=== PATIENT | female | born 1965 | race Caucasian/White ===

== ENCOUNTER 2019-12-22 | Emergency (ER) | payer OTHER ==
[2019-12-22] MEDS ORDERED: Etomidate 2 MG/ML 20 ML SDV IVPUSH ONE (00:26)
[2019-12-22] MEDS ORDERED: ceFAZolin 2 GM in Premix Bag 1 BAG IV ONE (01:05)
--- NOTE | 2019-12-22 01:28 | EDM.PDOC ---
ED HPI GENERAL MEDICAL PROBLEM - General Chief Complaint: Lower Extremity Injury/Pain Stated Complaint: INJURED RIGHT ANKLE Time Seen by Provider: 12/22/19 00:27 Source of Information: Reports: Patient, Family History Limitations: Reports: No Limitations - History of Present Illness INITIAL COMMENTS - FREE TEXT/NARRATIVE: This is a 54-year-old female. She was at a local club this evening when she decided to go outside because her friends are going outside to smoke. Apparently there was a sheet of ice and she slipped on the ice and fell breaking her right ankle and dislocating it. She comes to the ER for evaluation and she says she has sensation in her toes but her right foot is angulated laterally and obviously dislocated. She does have a small about 1 cm wound on the medial side of the ankle that is bleeding. [place] any other injuries and no other complaints. Right Ankle Pain Score (Numeric/FACES): 5 - Related Data Allergies Allergy/AdvReac Type Severity Reaction Status Date / Time No Known Allergies Allergy Verified 12/22/19 00:26 Past Medical History - Past Health History Medical/Surgical History: Denies Medical/Surgical History Social & Family History - Tobacco Use Smoking Status *Q: Never Smoker Second Hand Smoke Exposure: No - Caffeine Use Caffeine Use: Reports: Coffee - Recreational Drug Use Recreational Drug Use: No Review of Systems - Review of Systems Review Of Systems: See Below Constitutional: Denies: Chills, Fever Eyes: Reports: No Symptoms Ears: Reports: No Symptoms Nose: Reports: No Symptoms Mouth/Throat: Reports: No Symptoms Respiratory: Denies: Shortness of Breath, Cough Cardiovascular: Reports: No Symptoms GI/Abdominal: Reports: No Symptoms Genitourinary: Reports: No Symptoms Musculoskeletal: Reports: Other (As per HPI) Skin: Reports: Other (As per HPI) Neurological: Reports: No Symptoms Psychiatric: Reports: No Symptoms ED EXAM, GENERAL - Physical Exam Exam: See Below Exam Limited By: No Limitations General Appearance: Alert, WD/WN, Mild Distress Eye Exam: Bilateral Eye: Normal Inspection Ears: Normal External Exam Nose: Normal Inspection Throat/Mouth: Normal Lips, Normal Voice, No Airway Compromise Head: Atraumatic, Normocephalic Neck: Supple, Other (She denies any neck tenderness) Respiratory/Chest: No Respiratory Distress, Lungs Clear, Normal Breath Sounds, Other (She denies any rib tenderness on palpation) Cardiovascular: Regular Rate, Rhythm, No Murmur GI/Abdominal: Soft Back Exam: Other (She denies any thoracic or lumbar tenderness) Extremities: Other (The upper extremities and the left lower extremity are atraumatic, her right lower extremity shows an obvious angulated dislocated right ankle with the foot going laterally, she has 2+ pedal pulse, capillary refills intact in all 5 digits as well as sensation, she does have about a 1 cm laceration on the medial side of the knee that is bleeding suggesting this is an open fracture.) Neurological: Alert, Oriented Psychiatric: Flat Affect Skin Exam: Warm, Dry ED TRAUMA EXTREMITY PROCEDURES - Joint Reduction Site: Other (Right ankle) Sedation: Conscious Sedation (Etomidate 20 mg IV) Pre-Procedure NV Status: Normal Post-Procedure NV Status: Normal Technique: Traction/Counter Traction Number of Attempts: 1 Post-Reduction Imaging: Acceptably Reduced, Fracture Seen Joint Reduction Complications: No Course - Vital Signs Last Recorded V/S: Last Vital Signs Temp 97.2 F 12/22/19 00:21 Pulse 71 12/22/19 00:21 Resp 18 12/22/19 00:21 BP 122/85 12/22/19 00:21 Pulse Ox 96 12/22/19 00:21 - Orders/Labs/Meds Orders: Active Orders 24 hr Category Date Time Status Ankle 2V Rt [CR] Routine Exams 12/22/19 01:13 Taken Ankle 2V Rt [CR] Stat Exams 12/22/19 00:27 Taken Meds: Medications Discontinued Medications Generic Name Dose Route Start Last Admin Trade Name Freq PRN Reason Stop Dose Admin Etomidate 20 mg 12/22/19 00:26 12/22/19 00:50 Amidate IVPUSH 12/22/19 00:27 20 mg ONETIME ONE Administration Cefazolin Sodium/Dextrose 2 gm 50 mls @ 100 mls/hr 12/22/19 01:05 12/22/19 01 :18 / Premix IV 12/22/19 01:34 100 mls/hr ONETIME ONE Administration - Radiology Interpretation Free Text/Narrative:: Initial x-ray shows a dislocated right ankle laterally with a bimalleolar fracture. Reduction films show an acceptable basement of the ankle bones at this time. - Re-Assessments/Exams Free Text/Narrative Re-Assessment/Exam: 12/22/19 01:11 Spoke to the patient as well as the family prior to the reduction of the joint and using etomidate 20 mg IV. The was in the room during the conscious sedation and the reduction of her right ankle. After the ankle was reduced a posterior splint and a sugar tong splint were placed and reduction x-rays were done. 12/22/19 01:[address] 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 I spoke to Dr. Sands in the ER at [facility] and she accepts the patient in transport for further evaluation and treatment. The family are going to be taking the patient in their private vehicle to [facility] ER directly from our ER. She is to not eat anything or drink anything on the way to [facility] since they plan on doing surgery in the morning to repair the ankle fracture. 12/22/19 02:24 Patient received a 2 g of Ancef IV prior to leaving the ER. The family is going straight to [facility] for evaluation and treatment of the right ankle fracture. Departure - Departure Time of Disposition: 02:24 Disposition: Home, Self-Care 01 Condition: Fair Clinical Impression: Open bimalleolar fracture of right ankle Qualifiers: Encounter type: initial encounter Open fracture type: open type I or II Qualified Code(s): S82.841B - Displaced bimalleolar fracture of right lower leg , initial encounter for open fracture type I or II Fracture dislocation of right ankle joint Qualifiers: Encounter type: initial encounter Fracture type: open Open fracture type: open type I or II Qualified Code(s): S82.891B - Other fracture of right lower leg, initial encounter for open fracture type I or II - Discharge Information *PRESCRIPTION DRUG MONITORING PROGRAM REVIEWED*: Not Applicable *COPY OF PRESCRIPTION DRUG MONITORING REPORT IN PATIENT LEONARD: Not Applicable Forms: ED Department Discharge Additional Instructions: You are to go directly from this ER to [facility] ER in [facility] [place], Dr. Sands is the ER physician has accepted her for Dr. Chavez who is the orthopedic surgeon director of pediatric rehabilitation. YOU ARE NOT TO EAT OR DRINK ANYTHING ON YOUR WAY TO THE ER AND YOU MUST BE SEEN BY THE CO TEACHER, return to this ER if needed Sepsis Event Note - Evaluation Sepsis Screening Result: No Definite Risk - Focused Exam Vital Signs: Vital Signs Temp Pulse Resp BP Pulse Ox 12/22/19 00:21 97.2 F 71 18 122/85 96 Date Exam was Performed: 12/22/19 Time Exam was Performed: 02:24 ED Communication - ED Communication Date/Time Date: 12/22/19 Time Called: 01:25 - Discussed Case With (1) Discussed Case With (1): Other (Accepting physician in the ER) Person/s Notified (1): Dr. Sands (She accepts the patient in transport to [facility]) Person/s Notified (2): Dr. Chavez (He will see the patient in the ER for further evaluation and treatment) - My Orders Last 24 Hours: My Active Orders 12/22/19 00:27 Ankle 2V Rt [CR] Stat 12/22/19 01:13 Ankle 2V Rt [CR] Routine - Assessment/Plan Last 24 Hours: My Active Orders 12/22/19 00:27 Ankle 2V Rt [CR] Stat 12/22/19 01:13 Ankle 2V Rt [CR] Routine
--- NOTE | 2019-12-22 08:53 | CR ---
Right ankle: 2 views of the right ankle were obtained. Comparison: No previous study. Displaced trimalleolar fracture is noted. Dislocation is seen at the tibiotalar joint. Diffuse soft tissue swelling is present. Small plantar spur is seen. Impression: 1. Displaced trimalleolar fracture. Diagnostic code #5 This report was dictated in [place] Standard Time
--- NOTE | 2019-12-22 08:53 | CR ---
Right ankle: 2 views of the right ankle were obtained. Comparison: Previous right ankle study performed earlier on the same day (12:21 AM). Previous dislocation has been reduced, alignment not quite anatomic. Trimalleolar fracture is noted with less displacement than seen previously. Fiberglas cast or splint is noted. Impression: 1. Findings as noted above. Diagnostic code #3 This report was dictated in [place] Standard Time
== END 2019-12-22 02:25 ==
LOC: JD.ED
DX: S82.841B Displaced bimalleolar fracture of right lower leg, initial encounter for open fracture type I or II (principal); S93.04XA Dislocation of right ankle joint, initial encounter; W00.0XXA Fall on same level due to ice and snow, initial encounter
CPT/HCPCS: 27840; 73600; 96365; 99152; 99153; 99283; J0690; J3490; 99284